=== PATIENT | female | born 1960 | race Caucasian/White ===

== ENCOUNTER 2016-12-21 20:33 | Emergency (ER) | payer BC, OTHER ==
[~2016-12-21] VITALS: Ht 170.2 cm; Wt 49.0 kg
[2016-12-21 21:23] LABS: URINE BILIRUBIN NEGATIVE (Negative); URINE BLOOD TRACE (Negative); URINE COLOR YELLOW; URINE GLUCOSE-RANDOM* NEGATIVE (Negative); URINE KETONES NEGATIVE (Negative); URINE LEUKOCYTES-REFLEX 2+ (Negative); URINE PROTEIN (DIPSTICK) NEGATIVE (Negative); URINE SPECIFIC GRAVITY 1.015 (1.003-1.035); URINE UROBILINOGEN 0.2 E.U./dl (0.2-1.0)
[2016-12-21 21:59] LABS: CASTS None Seen /LPF (None Seen); CRYSTALS None Seen /LPF (None Seen); SQUAMOUS None Seen /LPF (0-3); URINE WBC-REFLEX >25 Many /HPF (0-5); WBC CLUMPS Occasional (None Seen)
[2016-12-21 22:00] LABS: URINE RBC 3-10 Few /HPF (0-2)
[2016-12-21 22:06] LABS: CALCIUM 8.4 mg/dL (8.5-10.1); CREATININE 0.9 mg/dL (0.6-1.0); POTASSIUM 3.9 mmol/L (3.5-5.1)
[2016-12-21] MEDS ORDERED: MACROBID 100 M100 M1 PO (22:15)
[2016-12-21 22:58] VITALS: BP 149/86
== END 2016-12-21 22:58 | disposition home or self-care (01) ==
LOC: ER 20:33
PROVIDERS: Emergency Medicine
DX: N39.0 Urinary tract infection, site not specified (principal); Z90.710 Acquired absence of both cervix and uterus; Z88.1 Allergy status to other antibiotic agents; Z88.8 Allergy status to other drugs, medicaments and biological substances

== ENCOUNTER 2017-01-21 04:09 | Emergency (ER) | payer BC, OTHER ==
[~2017-01-21] VITALS: Ht 170.2 cm; Wt 48.5 kg
--- NOTE | ~2017-01-21 | EKG ---
[address] [address] ELECTROCARDIOGRAM REPORT Name: COLTEN SHEETS Room #: [facility]#: [id number] Admission: 01/21/17 Attend Phys: Discharge: 01/21/17 Date of : 60 Report #: [id number] THIS REPORT FOR: //name// [facility] ED Test Date: 2017-01-21 Test Time: 04:57:26 Pat Name: COLTEN HSEETS Department: Room: Gender: F Mrp Controller: [id number] : 1960 Requested By: Gen Patel Order Number: [id number] MD: Daniel Griffin Measurements Intervals Burns Rate: 53 P: 68 AK: 172 QRS: 67 QRSD: 84 T: 70 QT: 429 QTc: 403 Interpretive Statements Sinus bradycardia Otherwise no significant abnormality No previous ECG available for comparison Electronically Signed On 01-21-2017 8:09:56 CDT by Daniel Griffin [email or web address] <ELECTRONICALLY SIGNED> By: Daniel Griffin MD, [facility] 01/21/17 [id number] Daniel Griffin MD, FACC /EPI
[~2017-01-21 04:09] MED LIST: MACROBID 100 M100 M1 PO
[2017-01-21 04:51] LABS: ABSOLUTE NEUTROPHILS 3.7 thou/uL (1.4-8.2); BASOPHILS 0.3 % (0.0-2.0); HEMATOCRIT 41.3 % (37.0-47.0); HEMOGLOBIN 14.1 gm/dL (12.0-15.0); LYMPHOCYTES 31.2 % (24.0-44.0); MCH 32.3 pg (26.0-34.0); MCHC 34.1 g/dL (28.0-37.0); MCV 94.6 fL (80.0-100.0); MONOCYTES 10.3 % (1.0-8.0); PLATELET COUNT 252 thou/uL (150-400); POLYS 58.2 % (36.0-66.0); RBC 4.37 mil/uL (4.20-5.00); RDW 12.3 % (10.5-14.5); WBC 6.3 thou/uL (4.0-11.0)
[2017-01-21 04:55] LABS: ANION GAP 9 mmol/L (7-16); BUN 11 mg/dL (7-18); CALCIUM 8.9 mg/dL (8.5-10.1); CHLORIDE 103 mmol/L (98-107); CO2 29 mmol/L (21-32); CREATININE 0.9 mg/dL (0.6-1.0); GLUCOSE 137 mg/dL (74-106); MANUAL DIFF NO; POTASSIUM 3.8 mmol/L (3.5-5.1); SODIUM 141 mmol/L (136-145)
[2017-01-21 05:03] LABS: TROPONIN-I < 0.04 ng/mL (<0.04-0.07)
[2017-01-21 05:18] LABS: URINE BILIRUBIN NEGATIVE (Negative); URINE BLOOD NEGATIVE (Negative); URINE COLOR YELLOW; URINE GLUCOSE-RANDOM* NEGATIVE (Negative); URINE KETONES NEGATIVE (Negative); URINE LEUKOCYTES-REFLEX TRACE (Negative); URINE PROTEIN (DIPSTICK) NEGATIVE (Negative); URINE UROBILINOGEN 0.2 E.U./dl (0.2-1.0)
[2017-01-21] MEDS ORDERED: ZOFRAN ODT4 MG PO (05:35)
[2017-01-21 06:21] VITALS: BP 106/62
== END 2017-01-21 06:22 | disposition home or self-care (01) ==
LOC: ER 04:09
PROVIDERS: Emergency Medicine
DX: R42 Dizziness and giddiness (principal); R11.0 Nausea; Z90.710 Acquired absence of both cervix and uterus; Z88.1 Allergy status to other antibiotic agents